=== PATIENT | female | born 1955 | race Caucasian/White ===

== ENCOUNTER 2017-09-08 23:19 | Emergency (ER) | payer BC ==
[~2017-09-08] VITALS: Ht 160 cm; Wt 59.0 kg
== END 2017-09-09 04:37 | disposition home or self-care (01) ==
LOC: ED 23:19
DX: T78.2XXA Anaphylactic shock, unspecified, initial encounter (principal); R49.0 Dysphonia; J45.909 Unspecified asthma, uncomplicated; Z87.891 Personal history of nicotine dependence; Z88.2 Allergy status to sulfonamides; Z88.5 Allergy status to narcotic agent
CPT/HCPCS: 94640; 96372; 96374; 96375; 99283; J1200; J2930